=== PATIENT | female | born 1975 | race Caucasian/White ===

== ENCOUNTER → 2018-09-01 | Day surgery (SDC) | payer OTHER ==
[~2018-09-01] VITALS: Ht 160 cm; Wt 80.3 kg
[2018-09-01 09:31] VITALS: BP 141/87
[2018-09-01 14:16] VITALS: BP 135/74
== END | disposition home or self-care (01) ==
LOC: DS 09:05 → OR 11:00
DX: K64.4 Residual hemorrhoidal skin tags (principal); K62.0 Anal polyp; K59.00 Constipation, unspecified; I10 Essential (primary) hypertension; E66.9 Obesity, unspecified; Z98.890 Other specified postprocedural states; Z90.49 Acquired absence of other specified parts of digestive tract; Z68.30 Body mass index [BMI] 30.0-30.9, adult; Z79.899 Other long term (current) drug therapy
CPT/HCPCS: J0690; J1170; J2405; J2704; J3010; J3490; J7030